=== PATIENT | female | born 1990 | race Two or more races ===

== ENCOUNTER 2022-12-15 17:49 | Emergency (ER) | payer MEDICAID, OTHER ==
[~2022-12-15] VITALS: Ht 167.6 cm; Wt 83.1 kg
[2022-12-15] MEDS ORDERED: SODIUM CHLORIDE 0.9% 1,000 ML IV ONE (18:15)
[2022-12-15] MEDS ORDERED: ONDANSETRON HCL 4 MG/2 ML VIAL IV ONE (18:15)
[2022-12-15] MEDS ORDERED: KETOROLAC TROMETH 30 MG/ML 1ML VIAL IV ONE (18:15)
[2022-12-15 18:31] LABS: Urine Bacteria FEW /hpf (None Seen); Urine Blood Negative /uL (Negative); Urine Clarity HAZY (Clear); Urine Color Yellow (Yellow); Urine Mucus FEW (None Seen); Urine Protein, UAD Negative (Negative); Urine Specific Gravity 1.026 (1.001-1.035); Urine Urobilinogen Normal (Negative); Urine WBC 4 /hpf (0 - 5); Urine pH 5.5 (5.0-8.0)
[2022-12-15 18:33] LABS: Basophils # (auto) 0 10 ^3/uL (0-0.2); Basophils % (auto) 0.4 % (0.0-2.0); Mean Corpuscular Hemoglobin 26.1 pg (28.0-32.0); Neutrophils # (auto) 5.6 10 ^3/uL (1.6-8.6); Nucleated Red Blood Cells % 0.1 %; White Blood Cell 8.9 10^3/uL (4.4-10.8)
[2022-12-15 18:35] LABS: Eosinophils # (auto) 0.1 10 ^3/uL (0-0.8); Eosinophils % (auto) 0.8 % (0.0-7.0); Hematocrit 36.3 % (36.0-46.0); Hemoglobin 11.8 g/dL (12.2-16.2); Lymphocytes # (auto) 2.6 10 ^3/uL (0.4-5.4); Lymphocytes % (auto) 28.7 % (10.0-50.0); Mean Corpuscular Hgb Conc. 32.4 g/dL (32.0-36.0); Mean Corpuscular Volume 80.7 fL (80.0-100.0); Monocytes # (auto) 0.7 10 ^3/uL (0-1.3); Monocytes % (auto) 7.4 % (0.0-12.0); Neutrophils % (auto) 62.7 % (37.0-80.0); Red Cell Distribution Width 15.5 % (11.8-14.3)
[2022-12-15 18:40] LABS: Albumin 3.8 g/dL (3.4-5.0); Calcium 8.5 mg/dL (8.5-10.1); Potassium 4.5 mmol/L (3.5-5.1)
[2022-12-15 18:44] LABS: BUN/Creatinine Ratio 19.3 (10.0-20.0); Bilirubin, Total 0.3 mg/dL (0.2-1.0); Total Protein 7.5 g/dL (6.4-8.2)
[2022-12-15] MEDS ORDERED: IOHEXOL 300 MG/ML 100ML BOTTLE IJ ONE (19:14)
[2022-12-15 20:12] VITALS: PULSE 64; RESP 22; TEMP 98; O2SAT 97
[2022-12-15] MEDS ORDERED: NAP500T PO (21:39)
[2022-12-15] MEDS ORDERED: ZOFR4T PO (21:39)
[2022-12-15 22:26] VITALS: BP 99/61; PULSE 68; RESP 17; O2SAT 99
== END 2022-12-15 22:25 | disposition home or self-care (01) ==
LOC: ER 17:49
DX: N83.201 Unspecified ovarian cyst, right side (principal); Z32.02 Encounter for pregnancy test, result negative
CPT/HCPCS: 36415; 74177; 76830; 76856; 80053; 81001; 81025; 85025; 96361; 96374; 96375; 99285; J1885; J2405; J7030; Q9967

== ENCOUNTER 2023-03-10 15:00 | Emergency (ER) | payer MEDICAID ==
[~2023-03-10] VITALS: Ht 167.6 cm; Wt 82.3 kg
[~2023-03-10 15:00] MED LIST: NAP500T PO; ZOFR4T PO
[2023-03-10 15:45] LABS: Urine Bacteria FEW /hpf (None Seen); Urine Blood Negative /uL (Negative); Urine Clarity Clear (Clear); Urine Color Yellow (Yellow); Urine Mucus FEW (None Seen); Urine Protein, UAD TRACE (Negative); Urine Urobilinogen Normal (Negative); Urine WBC 10 /hpf (0 - 5); Urine pH 5.5 (5.0-8.0)
[2023-03-10 16:22] VITALS: BP 112/52; PULSE 101; RESP 18; TEMP 97.8; O2SAT 97
[2023-03-10] MEDS ORDERED: PHEN-922 PO (16:43)
[2023-03-10] MEDS ORDERED: BACDST PO ×3 (16:43→16:47)
[2023-03-10] MEDS ORDERED: FLUC150T38 PO (16:47)
== END 2023-03-10 16:56 | disposition home or self-care (01) ==
LOC: ER 15:00
DX: N39.0 Urinary tract infection, site not specified (principal); Z90.49 Acquired absence of other specified parts of digestive tract; Z79.899 Other long term (current) drug therapy
CPT/HCPCS: 81001; 81025

== ENCOUNTER 2023-03-13 01:58 | Inpatient (IN) | payer MEDICAID ==
[~2023-03-13] VITALS: Ht 167.6 cm; Wt 82.0 kg
[2023-03-13 01:58] VITALS: RESP 18
[~2023-03-13 01:58] MED LIST changes: +BACDST PO; +FLUC150T38 PO; +PHEN-922 PO
[2023-03-13 02:35] LABS: Basophils # (auto) 0.1 10 ^3/uL (0-0.2); Eosinophils # (auto) 0.1 10 ^3/uL (0-0.8); Hemoglobin 11.2 g/dL (12.2-16.2); Monocytes # (auto) 0.6 10 ^3/uL (0-1.3); Neutrophils # (auto) 4.2 10 ^3/uL (1.6-8.6)
[2023-03-13 02:37] LABS: Basophils % (auto) 0.6 % (0.0-2.0); Eosinophils % (auto) 1.8 % (0.0-7.0); Hematocrit 34.8 % (36.0-46.0); Lymphocytes # (auto) 3.3 10 ^3/uL (0.4-5.4); Mean Corpuscular Hemoglobin 24.8 pg (28.0-32.0); Mean Corpuscular Hgb Conc. 32.1 g/dL (32.0-36.0); Mean Corpuscular Volume 77.3 fL (80.0-100.0); Monocytes % (auto) 7.6 % (0.0-12.0); Red Blood Cells 4.51 10^6/uL (4.0-5.20); Red Cell Distribution Width 15.1 % (11.8-14.3); White Blood Cell 8.3 10^3/uL (4.4-10.8)
[2023-03-13 03:01] LABS: Alanine Aminotransferase 37 U/L (7-40); Albumin 4.8 g/dL (3.2-4.8); Alkaline Phosphatase 106 U/L (46-116); Anion Gap 8 (5-15); Aspartate Aminotransferase 17 U/L (13-40); BUN/Creatinine Ratio 17.4 (10.0-20.0); Bilirubin, Total 0.3 mg/dL (0.2-1.0); Blood Urea Nitrogen 12 mg/dL (9-23); Calcium 9.5 mg/dL (8.7-10.4); Carbon Dioxide 27 mmol/L (20-30); Chloride 103 mmol/L (98-107); Glucose 106 mg/dL (74-106); Lipase 49 U/L (12-53); Potassium 3.5 mmol/L (3.5-5.1); Sodium 138 mmol/L (136-145); Total Protein 7.7 g/dL (5.7-8.2)
[2023-03-13 03:16] LABS: Urine Bacteria NONE SEEN /hpf (None Seen); Urine Blood Negative /uL (Negative); Urine Clarity Clear (Clear); Urine Color Brown (Yellow); Urine Protein, UAD Negative (Negative); Urine Specific Gravity 1.017 (1.001-1.035); Urine WBC 1 /hpf (0 - 5)
[2023-03-13 04:59] LABS: Blood Alcohol < 3.0 mg/dL (<10); CRP High Sensitivity 0.47 mg/dL (<1.0)
[2023-03-13 05:34] LABS: Erythrocyte Sedimentation Rate 13 mm/hr (0-20)
[2023-03-13] MEDS ORDERED: cefTRIAXone 1GM/50ML D5W 50 ML IV ONE (07:45)
[2023-03-13] MEDS ORDERED: metroNIDAZOLE 500MG/100ML 100 ML IV ONE (07:45)
[2023-03-13] MEDS ORDERED: LACTATED RINGER'S 1,000 ML IV ONE (07:45)
[2023-03-13] MEDS ORDERED: MORPHINE SULFATE 4 MG/ML SYR/VIAL IV ONE (07:45)
[2023-03-13] MEDS ORDERED: ONDANSETRON HCL 4 MG/2 ML VIAL IV ONE (07:45)
[2023-03-13 08:05] VITALS: BP 108/73; PULSE 92; TEMP 98.5; O2SAT 96
[2023-03-13] MEDS ORDERED: ONDANSETRON HCL 4 MG/2 ML VIAL IV PRN (10:30)
[2023-03-13] MEDS ORDERED: DOCUSATE SOD 100 MG CAP PO ONE (10:30)
[2023-03-13] MEDS ORDERED: KETOROLAC TROMETH 30 MG/ML 1ML VIAL IV ONE (10:30)
[2023-03-13] MEDS ORDERED: DOCUSATE SOD 100 MG CAP PO PRN (10:30)
[2023-03-13] MEDS ORDERED: ACETAMINOPHEN 325 MG TAB PO PRN (10:30)
[2023-03-13] MEDS: metroNIDAZOLE 500MG/100ML 100 ML IV SCH ×2 (14:30→22:35)
[2023-03-13] MEDS: SODIUM CHLORIDE 0.9% 1,000 ML IV SCH ×2 (14:30→21:55)
[2023-03-13] MEDS ORDERED: PHEN95TA10 PO (22:35)
[2023-03-13] MEDS ORDERED: CEPH500T PO (22:35)
[2023-03-13] MEDS ORDERED: FLUC150T38 PO (22:41)
[2023-03-14] MEDS ORDERED: cefTRIAXone 1GM/50ML D5W 50 ML IV SCH (09:00)
== END 2023-03-13 23:00 | disposition left against medical advice (07) | DRG 463 ==
LOC: ER 01:58 → OVERFLOW 10:25
PROVIDERS: ADMIT Nurse Practitioner Family; ATTEND Nurse Practitioner Family
DX: N30.00 Acute cystitis without hematuria (principal); K52.9 Noninfective gastroenteritis and colitis, unspecified; K59.00 Constipation, unspecified; Z53.29 Procedure and treatment not carried out because of patient's decision for other reasons; N83.209 Unspecified ovarian cyst, unspecified side; Z90.721 Acquired absence of ovaries, unilateral
CPT/HCPCS: 36415; 74176; 76856; 80053; 80320; 81001; 82010; 82553; 83605; 83690; 83880; 84443; 84702; 85025; 85652; 86141; 87086; G0378; J0696; J1885; J3490